=== PATIENT | female | born 1990 | race Caucasian/White ===

== ENCOUNTER 2017-10-30 18:13 | Emergency (ER) | payer SELFPAY ==
[~2017-10-30] VITALS: Ht 152.4 cm; Wt 51.0 kg
[2017-10-30] MEDS ORDERED: LIDOCAINE HCL 1% 20ML VIAL (Pyxis) INJ INFIL ONE (21:00)
[2017-10-30] MEDS ORDERED: IBUPROFEN 600MG TABLET PO ONE (21:00)
[2017-10-30] MEDS ORDERED: LIDOCAINE HCL/PF 1% 10 MG/ML 5ML VIAL IJ NR (21:15)
[2017-10-30 22:20] VITALS: BP 102/43
== END 2017-10-30 22:23 | disposition home or self-care (01) ==
LOC: ER 18:56
DX: S51.812A Laceration without foreign body of left forearm, initial encounter (principal); X58.XXXA Exposure to other specified factors, initial encounter; Y93.89 Activity, other specified; Y92.9 Unspecified place or not applicable
CPT/HCPCS: 12001; 99283; J3490; Z7610